=== PATIENT | female | born 1985 | race African-American/Black ===

== ENCOUNTER 2019-06-28 22:41 | Emergency (ER) | payer OTHER ==
[~2019-06-28] VITALS: Ht 175.3 cm; Wt 72.6 kg
[2019-06-28 22:46] VITALS: BP 119/87
[2019-06-28] MEDS ORDERED: TDAP [DIPH/PERTUSSIS/TET] 0.5 ML VIAL IM ONE ×2 (23:14→23:30)
== END 2019-06-28 23:23 | disposition home or self-care (01) ==
LOC: ER 22:46
DX: S81.832A Puncture wound without foreign body, left lower leg, initial encounter (principal); W64.XXXA Exposure to other animate mechanical forces, initial encounter; Y93.89 Activity, other specified; Y92.89 Other specified places as the place of occurrence of the external cause; Y99.8 Other external cause status
CPT/HCPCS: 90471; 90715; 99283; A6403